=== PATIENT | female | born 1975 | race Caucasian/White ===

== ENCOUNTER 2017-02-03 22:35 | Emergency (ER) | payer BC ==
[2017-02-03 18:20] LABS: BASOPHILS 0.8 %; BASOPHILS ABSOLUTE 0.03 10/3/uL (0.0-0.16); EOSINOPHILS 5.7 %; EOSINOPHILS ABSOLUTE 0.21 10/3/uL (0.0-0.53); ER CBC TAT 0 Hrs 05 Mins; HEMATOCRIT 35.3 % (36.0-48.0); LYMPHOCYTES 25.7 %; LYMPHOCYTES ABSOLUTE 0.94 10/3/uL (0.67-4.30); MEAN CORPUSCULAR HEMOGLOB 32.3 pg (26.0-34.0); MEAN CORPUSCULAR VOLUME 95.1 fL (80-100); MEAN PLATELET VOLUME 9.2 fL (9.2-13.0); MONOCYTES 7.1 %; MONOCYTES ABSOLUTE 0.26 10/3/uL (0.21-1.20); NEUTROPHILS 60.7 %; NEUTROPHILS ABSOLUTE 2.22 10/3/uL (2.02-8.40); PLATELET COUNT 233 10/3/uL (150-400); RBC DISTRIBUTION WIDTH 13.9 % (12.0-16.0); RED CELL COUNT 3.71 10/6/uL (4.0-5.6); WHITE BLOOD CELLS 3.7 10/3/uL (4.5-10.5)
[2017-02-03 18:23] LABS: MANUAL DIFF NO %
[2017-02-03 18:29] LABS: PROTIME (NOT ORD) 13.3 SEC (12.0-14.5)
[2017-02-03 18:30] LABS: PARTIAL THROMBO TIME 40.7 SEC (22.5-37.2)
[2017-02-03 18:36] LABS: CALCIUM, SERUM 8.7 MG/DL (8.5-10.4); CHEST PAIN PROFILE TAT 0 Hrs 21 Mins; CHLORIDE, SERUM 105 MMOL/L (96-112); CO2 (CARBON DIOXIDE) 29 MMOL/L (24-34); CREATININE 0.82 MG/DL (0.55-1.02); GFR AFRICAN AMERICAN 103 ML/MIN (>=60); GFR NON AFRICAN AMERICAN 89 ML/MIN (>=60); GLUCOSE, SERUM 75 MG/DL (60-99); SODIUM, SERUM 142 MMOL/L (135-148); TROPONIN I <0.02 NG/ML (<0.05)
[2017-02-03 18:37] LABS: BUN (BLOOD UREA NITROGEN) 11 MG/DL (6-23)
[~2017-02-03 22:35] MED LIST: ADVIL PO; ASAB PO; CENTRUM PO; COZAAR100 MG PO; LOP50 PO; PLAVIX PO; PROZAC40 MG PO; SEROQUEL300 MG PO; XANAX1 MG PO
[2017-05-17] MEDS ORDERED: PLAVIX PO (21:15)
[2017-05-17] MEDS ORDERED: SEROQUEL300 MG PO (21:16)
[2017-05-17] MEDS ORDERED: PROZAC40 MG PO (21:16)
[2017-05-17] MEDS ORDERED: XANAX1 MG PO (21:16)
[2017-05-17] MEDS ORDERED: AMB5 PO (21:18)
[2017-05-17] MEDS ORDERED: ASABAYER PO (21:19)
[2017-05-17] MEDS ORDERED: HARD NAILS PO (21:20)
[2017-05-17] MEDS ORDERED: VITAMIN D1000 UNI1 PO (21:20)
[2017-05-17] MEDS ORDERED: ADVIL PO (21:21)
[2017-05-17] MEDS ORDERED: EPIPEN0.3 IM (21:23)
[2017-05-19] MEDS ORDERED: PRAVAC (14:12)
== END 2017-02-03 22:46 | disposition home or self-care (01) ==
LOC: ER 22:35
PROVIDERS: Emergency Medicine
DX: M79.1 Myalgia (principal); I25.2 Old myocardial infarction; Z98.61 Coronary angioplasty status; F32.9 Major depressive disorder, single episode, unspecified; F41.9 Anxiety disorder, unspecified; I25.10 Atherosclerotic heart disease of native coronary artery without angina pectoris; Z88.2 Allergy status to sulfonamides; Z88.1 Allergy status to other antibiotic agents; Z79.899 Other long term (current) drug therapy
CPT/HCPCS: 71020; 80048; 83735; 84484; 85025; 85610; 85730; 93005; 96372; 99285; J2800

== ENCOUNTER 2017-03-13 22:47 | Emergency (ER) | payer BC ==
[2017-03-13 23:57] LABS: BASOPHILS 0.4 %; BASOPHILS ABSOLUTE 0.02 10/3/uL (0.0-0.16); EOSINOPHILS 8.6 %; EOSINOPHILS ABSOLUTE 0.46 10/3/uL (0.0-0.53); HEMOGLOBIN 13.9 g/dL (12.0-16.0); IMMATURE GRANULOCYTES 0.4 %; IMMATURE GRANULOCYTES ABSOLUTE 0.02 10/3/uL (0.0-0.11); LYMPHOCYTES 22.3 %; LYMPHOCYTES ABSOLUTE 1.19 10/3/uL (0.67-4.30); MEAN CORPUS HGB CONC 34.6 g/dL (32.0-36.0); MEAN CORPUSCULAR HEMOGLOB 33.1 pg (26.0-34.0); MEAN CORPUSCULAR VOLUME 95.7 fL (80-100); MEAN PLATELET VOLUME 9.1 fL (9.2-13.0); MONOCYTES 7.7 %; MONOCYTES ABSOLUTE 0.41 10/3/uL (0.21-1.20); NEUTROPHILS 60.6 %; NEUTROPHILS ABSOLUTE 3.23 10/3/uL (2.02-8.40); PLATELET COUNT 255 10/3/uL (150-400); RBC DISTRIBUTION WIDTH 14.6 % (12.0-16.0)
[2017-03-13 23:59] LABS: ER CBC TAT 0 Hrs 07 Mins; HEMATOCRIT 40.2 % (36.0-48.0); MANUAL DIFF NO %; WHITE BLOOD CELLS 5.3 10/3/uL (4.5-10.5)
[2017-03-14 00:06] LABS: PARTIAL THROMBO TIME 38.8 SEC (22.5-37.2); PROTIME (NOT ORD) 13.2 SEC (12.0-14.5)
[2017-03-14 00:12] LABS: BUN (BLOOD UREA NITROGEN) 10 MG/DL (6-23); CHEST PAIN PROFILE TAT 0 Hrs 20 Mins; CHLORIDE, SERUM 106 MMOL/L (96-112); CO2 (CARBON DIOXIDE) 28 MMOL/L (24-34); CREATININE 0.93 MG/DL (0.55-1.02); GFR AFRICAN AMERICAN 88 ML/MIN (>=60); GFR NON AFRICAN AMERICAN 76 ML/MIN (>=60); GLUCOSE, SERUM 77 MG/DL (60-99); POTASSIUM, SERUM 3.8 MMOL/L (3.5-5.3); SODIUM, SERUM 140 MMOL/L (135-148); TROPONIN I <0.02 NG/ML (<0.05)
[2017-03-14 00:18] LABS: CALCIUM, SERUM 9.9 MG/DL (8.5-10.4)
[2017-05-17] MEDS ORDERED: PLAVIX PO (21:15)
[2017-05-17] MEDS ORDERED: SEROQUEL300 MG PO (21:16)
[2017-05-17] MEDS ORDERED: XANAX1 MG PO (21:16)
[2017-05-17] MEDS ORDERED: PROZAC40 MG PO (21:16)
[2017-05-17] MEDS ORDERED: AMB5 PO (21:18)
[2017-05-17] MEDS ORDERED: ASABAYER PO (21:19)
[2017-05-17] MEDS ORDERED: VITAMIN D1000 UNI1 PO (21:20)
[2017-05-17] MEDS ORDERED: HARD NAILS PO (21:20)
[2017-05-17] MEDS ORDERED: ADVIL PO (21:21)
[2017-05-17] MEDS ORDERED: EPIPEN0.3 IM (21:23)
[2017-05-19] MEDS ORDERED: PRAVAC (14:12)
== END 2017-03-14 04:12 | disposition home or self-care (01) ==
LOC: ER 22:47
PROVIDERS: Emergency Medicine
DX: M54.9 Dorsalgia, unspecified (principal); R07.9 Chest pain, unspecified; F41.9 Anxiety disorder, unspecified; I25.2 Old myocardial infarction; F32.9 Major depressive disorder, single episode, unspecified; E11.9 Type 2 diabetes mellitus without complications; Z95.5 Presence of coronary angioplasty implant and graft; Z88.2 Allergy status to sulfonamides; Z88.1 Allergy status to other antibiotic agents; Z88.5 Allergy status to narcotic agent; Z88.8 Allergy status to other drugs, medicaments and biological substances; Z79.82 Long term (current) use of aspirin; Z79.899 Other long term (current) drug therapy
CPT/HCPCS: 71020; 73140-LT; 80048; 83735; 84484; 85025; 85610; 85730; 93005; 96374; 96375; 96376; 99285

== ENCOUNTER 2017-03-27 09:35 | Emergency (ER) | payer BC ==
[2017-05-17] MEDS ORDERED: PLAVIX PO (21:15)
[2017-05-17] MEDS ORDERED: PROZAC40 MG PO (21:16)
[2017-05-17] MEDS ORDERED: SEROQUEL300 MG PO (21:16)
[2017-05-17] MEDS ORDERED: XANAX1 MG PO (21:16)
[2017-05-17] MEDS ORDERED: AMB5 PO (21:18)
[2017-05-17] MEDS ORDERED: ASABAYER PO (21:19)
[2017-05-17] MEDS ORDERED: VITAMIN D1000 UNI1 PO (21:20)
[2017-05-17] MEDS ORDERED: HARD NAILS PO (21:20)
[2017-05-17] MEDS ORDERED: ADVIL PO (21:21)
[2017-05-17] MEDS ORDERED: EPIPEN0.3 IM (21:23)
[2017-05-19] MEDS ORDERED: PRAVAC (14:12)
== END 2017-03-27 09:44 | disposition home or self-care (01) ==
LOC: ER 09:35
DX: J01.90 Acute sinusitis, unspecified (principal); I25.2 Old myocardial infarction; F41.9 Anxiety disorder, unspecified; F32.9 Major depressive disorder, single episode, unspecified; M79.1 Myalgia; R51 Headache; E11.9 Type 2 diabetes mellitus without complications; Z98.61 Coronary angioplasty status; Z90.49 Acquired absence of other specified parts of digestive tract; Z90.89 Acquired absence of other organs; Z88.2 Allergy status to sulfonamides; Z88.1 Allergy status to other antibiotic agents; Z88.5 Allergy status to narcotic agent; Z79.82 Long term (current) use of aspirin; Z79.899 Other long term (current) drug therapy
CPT/HCPCS: 71020; 99284; A9270-GY

== ENCOUNTER 2017-05-14 23:41 | Emergency (ER) | payer BC ==
[2017-05-14 21:14] LABS: BASOPHILS 0.2 %; BASOPHILS ABSOLUTE 0.01 10/3/uL (0.0-0.16); EOSINOPHILS ABSOLUTE 0.15 10/3/uL (0.0-0.53); HEMOGLOBIN 11.7 g/dL (12.0-16.0); IMMATURE GRANULOCYTES 0.2 %; IMMATURE GRANULOCYTES ABSOLUTE 0.01 10/3/uL (0.0-0.11); LYMPHOCYTES 18.4 %; LYMPHOCYTES ABSOLUTE 0.91 10/3/uL (0.67-4.30); MEAN CORPUS HGB CONC 33.6 g/dL (32.0-36.0); MEAN CORPUSCULAR HEMOGLOB 32.2 pg (26.0-34.0); MEAN CORPUSCULAR VOLUME 95.9 fL (80-100); MEAN PLATELET VOLUME 9.2 fL (9.2-13.0); MONOCYTES 5.3 %; MONOCYTES ABSOLUTE 0.26 10/3/uL (0.21-1.20); NEUTROPHILS 72.9 %; PLATELET COUNT 250 10/3/uL (150-400); RBC DISTRIBUTION WIDTH 14.4 % (12.0-16.0); RED CELL COUNT 3.63 10/6/uL (4.0-5.6); WHITE BLOOD CELLS 4.9 10/3/uL (4.5-10.5)
[2017-05-14 21:16] LABS: HEMATOCRIT 34.8 % (36.0-48.0); MANUAL DIFF NO %
[2017-05-14 21:23] LABS: PARTIAL THROMBO TIME 38.1 SEC (22.5-37.2); PROTIME (NOT ORD) 13.5 SEC (12.0-14.5)
[2017-05-14 21:30] LABS: BUN (BLOOD UREA NITROGEN) 9 MG/DL (6-23); CHEST PAIN PROFILE TAT 0 Hrs 22 Mins; CHLORIDE, SERUM 107 MMOL/L (96-112); CO2 (CARBON DIOXIDE) 26 MMOL/L (24-34); GFR AFRICAN AMERICAN 105 ML/MIN (>=60); GFR NON AFRICAN AMERICAN 91 ML/MIN (>=60); POTASSIUM, SERUM 3.9 MMOL/L (3.5-5.3); SODIUM, SERUM 139 MMOL/L (135-148); TROPONIN I <0.02 NG/ML (<0.05)
[2017-05-14 21:32] LABS: GLUCOSE, SERUM 96 MG/DL (60-99)
[2017-05-17] MEDS ORDERED: PLAVIX PO (21:15)
[2017-05-17] MEDS ORDERED: SEROQUEL300 MG PO (21:16)
[2017-05-17] MEDS ORDERED: PROZAC40 MG PO (21:16)
[2017-05-17] MEDS ORDERED: XANAX1 MG PO (21:16)
[2017-05-17] MEDS ORDERED: AMB5 PO (21:18)
[2017-05-17] MEDS ORDERED: ASABAYER PO (21:19)
[2017-05-17] MEDS ORDERED: VITAMIN D1000 UNI1 PO (21:20)
[2017-05-17] MEDS ORDERED: HARD NAILS PO (21:20)
[2017-05-17] MEDS ORDERED: ADVIL PO (21:21)
[2017-05-17] MEDS ORDERED: EPIPEN0.3 IM (21:23)
[2017-05-19] MEDS ORDERED: PRAVAC (14:12)
== END 2017-05-15 02:16 | disposition home or self-care (01) ==
LOC: ER 23:41
PROVIDERS: Specialist
DX: I25.10 Atherosclerotic heart disease of native coronary artery without angina pectoris (principal); I10 Essential (primary) hypertension; E11.9 Type 2 diabetes mellitus without complications; F32.9 Major depressive disorder, single episode, unspecified; F41.9 Anxiety disorder, unspecified; Z86.73 Personal history of transient ischemic attack (TIA), and cerebral infarction without residual deficits; Z95.5 Presence of coronary angioplasty implant and graft; Z88.2 Allergy status to sulfonamides; Z88.1 Allergy status to other antibiotic agents; Z88.5 Allergy status to narcotic agent; Z88.8 Allergy status to other drugs, medicaments and biological substances; Z79.82 Long term (current) use of aspirin; Z79.899 Other long term (current) drug therapy
CPT/HCPCS: 71020; 71275; 80048; 83735; 84484; 85025; 85610; 85730; 93005; 96374; 96375; 99285; J1170; J2405; Q9967